=== PATIENT | female | born 1950 | race Caucasian/White ===

== ENCOUNTER 2021-10-22 11:18 | Inpatient (IN) ==
[2021-10-22] MEDS ORDERED: Aspirin 81 MG TAB.CHEW PO ONE (11:47)
[2021-10-22 12:26] LABS: Basophils % 0.3 %; Eosinophils # 0.1 K/mcL (0.0-0.6); Eosinophils % 0.5 %; Hematocrit 45.9 % (35.3-44.9); Hemoglobin 14.8 g/dL (11.5-15.4); Immature Granulocytes % 0.5 % (0-4); Lymphocytes # 1.1 K/mcL (0.6-4.6); Lymphocytes % 9.2 %; Mean Corpuscular HGB Conc 32.2 g/dL (31.6-35.5); Mean Corpuscular Hemoglobin 30.8 pg (28.0-33.3); Mean Corpuscular Volume 95.6 fL (83.0-100.0); Mean Platelet Volume 8.9 fL (9.4-12.4); Monocytes # 0.8 K/mcL (0.0-1.3); Monocytes % 6.5 %; Neutrophils # 9.8 K/mcL (1.6-8.9); Platelet Count 394 K/mcL (140-400); Red Cell Distribution Width 12.8 % (11.5-14.5); White Blood Count 11.8 K/mcL (4.3-11.1)
[2021-10-22 12:33] LABS: Prothrombin Time 11.1 Seconds (9.4-12.1)
[2021-10-22 13:06] LABS: Alanine Aminotransferase 19 Units/L (7-52); Albumin 4.3 g/dL (3.5-5.7); Albumin/Globulin Ratio 1.6 (1.1-2.2); Alkaline Phosphatase 97 Units/L (34-104); Aspartate Amino Transferase 44 Units/L (13-39); BUN/Creatinine Ratio 18 (6-26); Bilirubin,Indirect 0.3 mg/dL (0.0-1.0); Bilirubin,Total 0.3 mg/dL (0.3-1.0); Blood Urea Nitrogen 9 mg/dL (8-23); Calcium 9.4 mg/dL (8.6-10.3); Carbon Dioxide 25 mEq/L (23-29); Chloride 103 mEq/L (98-107); Globulin 2.7 g/dL (2.4-3.5); Glucose 100 mg/dL (70-105); Lipase 20 Units/L (11-82); Osmolality,Calculated 283 (280-300); Potassium 3.8 mEq/L (3.5-5.1); Sodium 137 mEq/L (136-145); eGFR For African Americans > 60 (> 60); eGFR For Non-African Americans > 60 (> 60)
[2021-10-22] MEDS ORDERED: *HR* Heparin 5,000 UNIT/ML VIAL IVP ONE (13:19)
[2021-10-22] MEDS ORDERED: *HR* Heparin 5,000 UNIT/ML VIAL IVP PRN ×2 (13:19)
[2021-10-22] MEDS ORDERED: Ondansetron ODT 4 MG TAB.RAPDIS SL PRN (14:09)
[2021-10-22 14:55] LABS: Hematocrit 47.6 % (35.3-44.9); Hemoglobin 15.3 g/dL (11.5-15.4); Mean Corpuscular HGB Conc 32.1 g/dL (31.6-35.5); Mean Corpuscular Hemoglobin 30.7 pg (28.0-33.3); Mean Corpuscular Volume 95.6 fL (83.0-100.0); Mean Platelet Volume 9.9 fL (9.4-12.4); Platelet Count 317 K/mcL (140-400); Red Blood Count 4.98 M/mcL (3.82-4.97); Red Cell Distribution Width 12.7 % (11.5-14.5); White Blood Count 13.3 K/mcL (4.3-11.1)
[2021-10-22 15:10] LABS: Heparin anti-factor XA UFH < 0.04 IU/mL (0.30-0.70); Prothrombin Time 11.1 Seconds (9.4-12.1)
[2021-10-22] MEDS: Heparin 25,000UNIT/250ML 1/2NS 25,000 UNIT/250 ML IV.SOLN IVC SCH (15:52)
[2021-10-22] MEDS ORDERED: Heparin 1,000 UNITS/500 mL 500 ML ONE (16:50)
[2021-10-22] MEDS ORDERED: ISOVUE-370 200 ML INFUS..BTL ONE ×2 (16:50→17:38)
[2021-10-22] MEDS ORDERED: 0.9 % Sodium Chloride 1,000 ML ONE ×2 (16:50→16:54)
[2021-10-22] MEDS ORDERED: *HR* Heparin 10,000 UNIT/10 ML VIAL ONE (16:50)
[2021-10-22] MEDS ORDERED: Nitroglycerin 1,000 MCG/5 ML VIAL IV ONE (16:50)
[2021-10-22] MEDS ORDERED: *HR* FentaNYL (PF) 100 MCG/2 ML VIAL ONE (17:12)
[2021-10-22] MEDS ORDERED: *HR* Midazolam HCl 2 MG/2 ML VIAL ONE (17:12)
[2021-10-22] MEDS ORDERED: Tirofiban 12.5 MG/250ML 12.5 MG/250 ML BAG ONE (17:35)
[2021-10-22] MEDS ORDERED: *HR* Ticagrelor 90 MG TABLET ONE (17:45)
[2021-10-22] MEDS ORDERED: Tirofiban 12.5 MG/250ML 12.5 MG/250 ML BAG IVC SCH (18:00)
[2021-10-22] MEDS: *HR* Ticagrelor 90 MG TABLET PO SCH (20:28)
[2021-10-22 21:24] LABS: Chol/HDL Ratio 4.9 (0-4.9)
[2021-10-22 21:29] LABS: Troponin I 25.5 ng/mL (< 0.04)
[2021-10-22 22:07] LABS: Estimated Average Glucose 123 mg/dl; Hemoglobin A1C 5.9 %
[2021-10-23 02:37] LABS: Basophils % 0.3 %; Eosinophils # 0.1 K/mcL (0.0-0.6); Eosinophils % 0.5 %; Hematocrit 42.3 % (35.3-44.9); Hemoglobin 14.3 g/dL (11.5-15.4); Immature Granulocytes % 0.4 % (0-4); Lymphocytes # 1.3 K/mcL (0.6-4.6); Lymphocytes % 10.5 %; Mean Corpuscular HGB Conc 33.8 g/dL (31.6-35.5); Mean Corpuscular Hemoglobin 32.1 pg (28.0-33.3); Mean Corpuscular Volume 94.8 fL (83.0-100.0); Mean Platelet Volume 8.8 fL (9.4-12.4); Neutrophils # 9.6 K/mcL (1.6-8.9); Platelet Count 383 K/mcL (140-400); Red Blood Count 4.46 M/mcL (3.82-4.97); Segmented Neutrophils % 80.3 %
[2021-10-23 02:50] LABS: BUN/Creatinine Ratio 19 (6-26); Blood Urea Nitrogen 10 mg/dL (8-23); Calcium 9.1 mg/dL (8.6-10.3); Carbon Dioxide 24 mEq/L (23-29); Chloride 105 mEq/L (98-107); Glucose 108 mg/dL (70-105); Osmolality,Calculated 284 (280-300); Potassium 3.9 mEq/L (3.5-5.1); Sodium 137 mEq/L (136-145); eGFR For African Americans > 60 (> 60); eGFR For Non-African Americans > 60 (> 60)
[2021-10-23] MEDS: *HR* Ticagrelor 90 MG TABLET PO SCH (07:47)
[2021-10-23] MEDS ORDERED: Aspirin 81 MG TAB.CHEW PO SCH (09:00)
[2021-10-23] MEDS ORDERED: Perflutren Lipid Microsphere 1.3 ML in 0.9 % Sodium Chloride 8.7 ML IVP PRN (13:34)
[2021-10-23] MEDS ORDERED: Metoprolol XL (24 HR) Succ 25 MG TAB.ER.24H PO SCH (13:45)
[2021-10-23] MEDS: Heparin 25,000UNIT/250ML 1/2NS 25,000 UNIT/250 ML IV.SOLN IVC SCH (14:19)
[2021-10-23 16:46] VITALS: BP 138/78; PULSE 71; TEMP 98; O2SAT 96
== END 2021-10-23 17:37 | disposition home or self-care (01) | DRG 247 ==
LOC: 2ANU 11:18 → EMEROOARM 11:18 → 2ANU 17:09
PROVIDERS: ADMIT Hospitalist; ATTEND Hospitalist